=== PATIENT | female | born 1985 | race Caucasian/White ===

== ENCOUNTER 2016-10-11 21:09 | Emergency (ER) | payer OTHER ==
[~2016-10-11] VITALS: Ht 172.7 cm; Wt 139.3 kg
[2016-10-11 21:13] VITALS: TEMP 36.8; Ht 172.7 cm; Wt 139.3 kg
[2016-10-11] MEDS ORDERED: PRLSR20 PO (21:49)
[2016-10-11] MEDS ORDERED: DIPH1TAB87 PO (21:49)
[2016-10-11] MEDS ORDERED: HYDR-389 PO (21:49)
[2016-10-11] MEDS ORDERED: ATEN-173 PO (21:49)
[2016-10-11] MEDS ORDERED: GLC/500 PO (21:49)
--- NOTE | 2016-10-11 22:28 | EMERGENCY ROOM VISIT NOTE ---
History Report prepared by Viki: Katerine Hernandez Under the Supervision of: Dr. Darion Jacobo M.D. First contact with patient: 22:00 Chief Complaint: CONSTIPATION Stated Complaint: CONSTIPATION, NAUSEA Nursing Triage Summary: patient states she has not had a BM for one week along with intermittent nausea. patient states she went to [facility] last week for evaluation and had blood work and CT scan and was told everything looked okay. patient states she is able to tolerate food and fluids but is still not having BM's and feels bloated. History of Present Illness The patient is a 31 year old female who presents to the Emergency Room with complaints of persistent constipation that started 1 week ago. The patient states that she has been taking MiraLAX 4 times a day at double the dose, but has not experienced any significant relief. She states that she is able to have small bowel movements. She states that she also tried using Dulcolax. The patient is also experiencing abdominal bloating and abdominal pressure. She states that she does not have an urge to have a bowel movement. The patient denies any urinary symptoms or abnormal vaginal discharge. She adds that she was seen at the [facility] 5 days ago for persistent vomiting. They diagnosed her with a viral illness, but they also did an abdominal CT scan to rule out pancreatitis. The abdominal CT scan was unremarkable. She states that she does not have any nausea or vomiting currently. The patient is eating, but she states that her appetite is decreasing. She denies any chance of . The patient states that she had a cholecystectomy in 2012, but otherwise denies any previous abdominal surgeries. Source of History: patient Onset: 1 week ago Position: abdomen Quality: other (constipation) Timing: other (persistent) Modifying Factors (Relieving): other (none) Associated Symptoms: + abdominal pain (pressure), No urinary symptoms Note: abdominal bloating, no abnormal vaginal discharge Review of Systems See HPI for pertinent positives & negatives. A total of 10 systems reviewed and were otherwise negative. Past Medical & Surgical Surgical Problems: (1) History of cholecystectomy Family History No pertinent family history Social History Smoking Status: Former Smoker Housing Status: lives with family Current/Historical Medications Scheduled Atenolol (Tenormin), 10 MG PO HS Hydroxyzine Hcl (Atarax), 10 MG PO HS Metformin Hcl (Glucophage), 500 MG PO HS Sennosides-Docusate Sodium (Senokot S), 2 TAB PO BID Scheduled PRN Diphenhydramine Hcl (Benadryl Allergy), 50 MG PO HS PRN for Sleep Omeprazole (Prilosec), 20 MG PO DAILY PRN for Indigestion Allergies Coded Allergies: Cephalosporins (Verified Allergy, Unknown, HIVES, 10/11/16) Clindamycin (Verified Allergy, Unknown, HIVES, 10/11/16) Levofloxacin (Verified Allergy, Unknown, RASH, 10/11/16) Penicillins (Verified Allergy, Unknown, RASH, 10/11/16) Physical Exam Vital Signs Date Time Temp Pulse Resp B/P Pulse Ox O2 Delivery O2 Flow Rate FiO2 10/11/16 23:19 88 20 158/94 97 Room Air 10/11/16 21:13 36.8 84 18 158/115 99 Room Air Physical Exam GENERAL: Patient is in no acute distress. HEENT: No acute trauma, normocephalic atraumatic, mucous membranes moist, no nasal congestion, no scleral icterus. NECK: No stridor, no adenopathy, no meningismus, trachea is midline. LUNGS: Clear to auscultation bilaterally, no wheeze, no rhonchi, breath sounds equal. HEART: Without murmurs gallops or rubs, regular rate and rhythm. ABDOMEN: Soft, nontender, bowel sounds positive, no hernias, no peritonitis. EXTREMITIES: No cyanosis or edema, full range of motion of all the joints without pain or difficulty, no signs for acute trauma. NEUROLOGIC: Oriented x 3, no acute motor or sensory deficits, no focal weakness. SKIN: No rash, no jaundice, no diaphoresis. Medical Decision & Procedures ER Provider Diagnostic Interpretation: X-ray results as stated below per interpretation by me and the radiologist: KUB FINDINGS: The bowel gas pattern is unremarkable. There are no dilated loops of small bowel to suggest an obstruction. No renal calculi. No ureteral calculi. No pneumoperitoneum or pneumatosis. Small amount of stool within the colon. Cholecystectomy. IMPRESSION: Small amount of stool within the colon. No evidence for bowel obstruction. Electronically signed by: Remington Chopra M.D. 10/11/2016 10:47 PM Dictated Date/Time: 10/11/2016 10:45 PM Medications Administered Medications (Trade) Dose Ordered Sig/Nathan Route Start Time Stop Time Status Last Admin Dose Admin Senna/Docusate Sodium (Senokot S Tab) 2 tab NOW ONCE PO 10/11/16 23:30 10/11/16 23:31 10/11/16 23:20 2 TAB ED Course 2203: The patient was evaluated in room C8. A complete history and physical exam was performed. 2311: Reevaluated the patient. Discussed results and discharge instructions: she verbalized understanding and agreement. The patient is ready for discharge. 2330: Ordered Senna/Docusate Sodium 2 tab PO Medical Decision Differential diagnoses considered include viral illness, dehydration, electrolyte imbalance, UTI, anemia, appendicitis, diverticulitis, constipation. The patient presents with some bloating and some diffuse abdominal cramping. She has not had a bowel movement in about a week. She did have a viral illness with vomiting just prior to the difficulty moving her bowels. She has had a workup at a surrounding hospital with no concerning findings. The patient is using Miralax. She does not have the urge to have a bowel movement but feels that she needs to or should because it has been so long since her last BM. KUB demonstrates a mild amount of stool, there was air in the colon, no evidence for bowel obstruction, there was no evidence for significant constipation. On exam, the patient was not febrile or toxic. There was no peritonitis. The patient likely has an ileus. She was reassured that she was not overly constipated. I'm going to add Senokot to help stimulate the bowels, she'll continue the Miralax. Hydration was encouraged. If worsening she can return. Motrin/Tylenol was advised for pain. The patient's blood pressure was mildly elevated, this likely was from the stress of this visit. Her pressure started to decrease during her ER stay. She can follow with her doctor for blood pressure monitoring. Impression Primary Impression: Bloating Scribe Attestation The scribe's documentation has been prepared under my direction and personally reviewed by me in its entirety. I confirm that the note above accurately reflects all work, treatment, procedures, and medical decision making performed by me. Departure Information Dispostion Home / Self-Care Prescriptions Sennosides-Docusate Sodium (SENOKOT S) 1 Tab Tab 2 TAB PO BID, #60 TAB Prov: Darion Jacobo M.D. 10/11/16 Referrals No Doctor, Assigned (PCP) Forms HOME CARE DOCUMENTATION FORM, IMPORTANT VISIT INFORMATION Patient Instructions My [facility] Additional Instructions continue miralax daily add Senokot S 2 tab 2x per day motrin/tylenol for pain return if worsening rest, fluids are important
--- NOTE | 2016-10-11 22:48 | DIAGNOSTIC IMAGING REPORT ---
KUB HISTORY: Nausea. poss constipation COMPARISON: None. FINDINGS: The bowel gas pattern is unremarkable. There are no dilated loops of small bowel to suggest an obstruction. No renal calculi. No ureteral calculi. No pneumoperitoneum or pneumatosis. Small amount of stool within the colon. Cholecystectomy. IMPRESSION: Small amount of stool within the colon. No evidence for bowel obstruction. Electronically signed by: Remington Chopra M.D. 10/11/2016 10:47 PM Dictated Date/Time: 10/11/2016 10:45 PM
[2016-10-11] MEDS ORDERED: SENN-65 PO (23:19)
[2016-10-11 23:28] VITALS: BP 158/94; PULSE 88; O2SAT 97
[2016-10-11] MEDS ORDERED: DOCUSATE SODIUM/SENNA 50/8.6MG TAB PO ONE (23:30)
== END 2016-10-11 23:29 | disposition home or self-care (01) ==
LOC: C.EDB 21:12 → C.EDC 23:29
DX: R14.0 Abdominal distension (gaseous) (principal); Z87.891 Personal history of nicotine dependence; Z90.49 Acquired absence of other specified parts of digestive tract

== ENCOUNTER 2021-03-30 17:17 | Observation (INO) ==
[2021-03-30 18:42] LABS: Basophils # (auto) 0.03 K/uL (0-0.2); Basophils % (auto) 0.2 %; Eosinophils # (auto) 0.16 K/uL (0-0.5); Eosinophils % (auto) 1.1 %; Hematocrit (blood only) 37.3 % (37-47); Hemoglobin 11.9 g/dL (12.0-16.0); Immature Granulocytes # (auto) 0.05 K/uL (0.00-0.02); Immature Granulocytes % (auto) 0.4 %; Lymphocytes # (auto) 4.26 K/uL (1.2-3.4); Lymphocytes % (auto) 29.8 %; Mean Corpuscular Hemoglobin 24.5 pg (25-34); Mean Corpuscular Hgb Conc 31.9 g/dL (32-36); Mean Corpuscular Volume 76.9 fL (80-100); Mean Platelet Volume 9.1 fL (7.4-10.4); Monocytes % (auto) 5.6 %; Neutrophils # (auto) 8.98 K/uL (1.4-6.5); Neutrophils % (auto) 62.9 %; Platelet Count 507 K/uL (130-400); RDW Coefficient of Variation 17.2 % (11.5-14.5); RDW Standard Deviation 48.4 fL (36.4-46.3); Red Blood Count 4.85 M/uL (4.2-5.4); White Blood Count 14.28 K/uL (4.8-10.8)
[2021-03-30 18:46] LABS: Appearance Urine Clear (Clear); Bacteria Urine Automated Negative (Negative); Bilirubin Urine Negative (Negative); Blood Urine 2+ (Negative); Cast Urine Automated 0 /lpf (0-5); Color Urine Yellow; Epithelial Cell Urine Auto 0-5 /lpf (0-5); Glucose Urine UA Negative (Negative); Ketones Urine Negative (Negative); Leukocyte Esterase Urine Trace (Negative); Nitrite Urine Negative (Negative); Protein Urine Negative (Negative); Urobilinogen Urine Negative (Negative); pH Urine 6.5 (4.5-7.5)
[2021-03-30 18:58] LABS: Pregnancy Test, Serum Negative (Negative)
[2021-03-30 19:00] LABS: Albumin Level 3.8 gm/dl (3.4-5.0); BUN Creatinine Ratio 14.7 (10-20); Calcium 9.5 mg/dl (8.5-10.1); Creatinine Clr Calc Pharmacy 190.9 ml/min; Est GFR (African American) 134.3 ml/min; Est GFR (Non-African American) 115.8 ml/min; Potassium 3.5 mmol/L (3.5-5.1)
[2021-03-30 19:02] LABS: Albumin Globulin Ratio 0.8 (0.9-2); Bilirubin,Total 0.5 mg/dl (0.2-1); Globulin 4.7 gm/dl (2.5-4.0); Total Protein 8.5 gm/dl (6.4-8.2)
[2021-03-30] MEDS ORDERED: SODIUM CHLORIDE 0.9% 1000ML 1,000 ML IV ONE (19:49)
[2021-03-30] MEDS ORDERED: HYDROmorphone INJ 0.5 MG/0.5 ML SYR IV STA ×2 (19:49→22:19)
[2021-03-30] MEDS ORDERED: ONDANSETRON INJ 2 MG/ML 2 ML VIAL IV STA (19:50)
--- NOTE | 2021-03-30 19:52 | Emergency Department Note ---
Impression & Plan Appendicitis, Abdominal pain ED Provider Note NAME: TIFFANY ALLEN AGE: 36 SEX: F : 1985 ARRIVES VIA: Walk-In INFORMANT: Patient ED PROVIDER(S): Yusuf Christianson DO CHIEF COMPLAINT: abdominal pain HPI: Patient is a 36-year-old female who presents the ER for diffuse lower abdominal pain associated with nausea. She notes that this started past 24 hours. She has been having loose bowel movements for the past week with her menstrual period which started about a week ago. She has been very irregular for the past several months. After she urinates she feels like she has to urinate again and she has burning. She admits to urgency. She has pain with having bowel movements and they are very hard and very small. She is only getting small amount of time. She feels like she still has to go. She is sexually active with her . She denies any other vaginal discharge. She does admit to some bruising on the abdomen. Pain is an 8 out of 10 and constant in her lower abdomen. ROS: See above HPI for pertinent positives & negatives. A total of 10 systems reviewed and were otherwise negative. PAST MEDICAL HISTORY:See Below PAST SURGICAL HISTORY:See Below FAMILY HISTORY:See Below SOCIAL HISTORY:See Below HOME MEDICATIONS:See Below ALLERGIES:See Below VITALS:See Below PHYSICAL EXAMINATION: GENERAL: Sitting up in bed, alert, obese, mild distress EYE EXAM: normal conjunctiva. PERRL and EOM's grossly intact. OROPHARYNX: no exudate, no erythema, lips, buccal mucosa, and tongue normal and mucous membranes are moist NECK: supple, no nuchal rigidity, no adenopathy, non-tender LUNGS: Clear to auscultation. Normal chest wall mechanics HEART: no murmurs, S1 normal and S2 normal ABDOMEN: abdomen soft, tenderness in lower abdomen, normo-active bowel sounds, no masses, no rebound or guarding. BACK: Back is symmetrical on inspection and there is no deformity, no midline tenderness, no CVA tenderness. UPPER EXTREMITIES: upper extremities are grossly normal. LOWER EXTREMITIES: No pitting edema. NEURO EXAM: Normal sensorium, cranial nerves II-XII grossly intact, normal speech, no gross weakness of arms, no gross weakness of legs. MEDICAL DECISION MAKING: Patient is a 36-year-old female who presents to the ER for abdominal pain. She is referred in. IV was established blood work was obtained. Labs show mild leukocytosis of 14,000. No significant anemia. BMP with LFTs bilirubin and lipase is unremarkable. hCG was negative. UA was clean. Covid was negative. CT shows distended appendix with stranding. Case was discussed with general surgery and patient was seen evaluated by Luis Pillai. He recommended Cipro and Flagyl and they will admit for OR in the morning. Triage Nursing notes reviewed. Limited review of prior medical records performed Vital Signs: reviewed and remarkable for HTN Differential diagnosis: Differential diagnoses includes but is not limited to gastritis, peptic ulcer disease, GERD, gallbladder disease, pancreatitis, small bowel obstruction, acute coronary syndrome, pericarditis, ischemic bowel, irritable bowel disease, irritable bowel syndrome, appendicitis, diverticulitis, malignancy, hernia, urinary tract infection, torsion, /ectopic (if female), perforation, trauma, infectious. ER treatment provided: See below Diagnostics interpreted by me: ECG: none Cardiac Monitoring: An order was placed for continuous cardiac monitoring. The monitor shows a rate of 72 with sinus rhythm. Laboratory studies: As stated above and show below. 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 > extensive workup including serum tryptase with no definitive etiology, 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 > prednisone PRN Migraine Morbid obesity No pertinent past medical history Polycystic ovarian syndrome on Metformin Post traumatic stress disorder Scoliosis mild Surgical History History of biopsy Uterine History of cholecystectomy History of cholecystectomy History of colonoscopy History of esophagogastroduodenoscopy (EGD) Hooper teeth removed Family History Other Family history non-contributory No family history of adverse response to anesthesia Social History Smoking Status: Former smoker Tobacco Type: Cigarettes Second Hand Exposure: Yes; Hx Alcohol Use: Yes Preferred Language: Pashto Thermal Spr[employer] Operator Required: No Beliefs That Will Affect Care: None Current Living Situation: Family Feels Safe at Home: Yes Assistive Devices: Contacts Allergies Allergies Allergy/AdvReac Type Severity Reaction Status Date / Time morphine Allergy Intermediate Difficulty Verified 03/30/21 20:26 Breathing Cephalosporins Allergy Mild Hives Verified 03/30/21 20:26 clindamycin Allergy Mild Hives Verified 03/30/21 20:26 levofloxacin Allergy Mild Rash Verified 03/30/21 20:26 Penicillins Allergy Mild Rash Verified 03/30/21 20:26 Home Meds Home Medications Medication Instructions Recorded Confirmed metformin 500 mg tablet 500 mg PO BID 10/22/18 03/30/21 albuterol sulfate 90 mcg/actuation 2 puff INHALATION Q6H PRN 07/24/20 03/30/21 aerosol inhaler (Ventolin HFA) diphenhydramine HCl 25 mg tablet 25 mg PO Q6H PRN 07/24/20 03/30/21 (Benadryl Allergy) epinephrine 0.3 mg/0.3 mL 0.3 mg IM Q4H PRN 07/24/20 03/30/21 injection, auto-injector hydroxyzine HCl 25 mg tablet 25 mg PO DAILY PRN 07/24/20 03/30/21 sertraline 50 mg tablet (Zoloft) 50 mg PO QAM 07/24/20 03/30/21 prednisone 10 mg tablet 20 mg PO DAILY PRN 08/10/20 03/30/21 cetirizine 10 mg tablet 10 mg PO DAILY 03/30/21 03/30/21 Previous Rx's Medication Instructions Recorded ondansetron 4 mg disintegrating 4 mg PO Q6H PRN #12 tab 05/21/20 tablet Results & Data (ED) Vital Signs Vital Signs - 24 hr 03/30/21 18:29 03/30/21 20:00 03/30/21 22:00 Temperature 36.9 C Temperature Source Oral Pulse Rate 81 Pulse Rate [Apical] 87 80 Pulse Rhythm [Apical] Regular Pulse Strength [Apical] Normal Respiratory Rate 18 18 18 Respiratory Effort / Characteristics Non-Labored Respiratory Depth Normal Respiratory Pattern Regular Blood Pressure 203/121 H Blood Pressure [Left Arm] 185/92 H 157/90 H Blood Pressure Mean 148 Blood Pressure Mean [Left Arm] 123 112 Blood Pressure Position [Left Arm] Sitting Pulse Oximetry 100 100 99 Oxygen Delivery Method Room Air Room Air Room Air Sepsis Recent Fever Within 48 Hours No Sepsis New/Unexplained Change in Mental Status No Sepsis Action Taken by Nursing No Action Required Laboratory Data Result diagrams: 03/30/21 18:34 03/30/21 18:34 Lab Results 03/30/21 03/30/21 03/30/21 Range/Units 18:34 18:34 18:34 WBC 14.28 H (4.8-10.8) K/uL RBC 4.85 (4.2-5.4) M/uL Hgb 11.9 L (12.0-16.0) g/dL Hct 37.3 (37-47) % MCV 76.9 L (80-100) fL MCH 24.5 L (25-34) pg MCHC 31.9 L (32-36) g/dL RDW Std Deviation 48.4 H (36.4-46.3) fL RDW Coeff of Rian 17.2 H (11.5-14.5) % Plt Count 507 H (130-400) K/uL MPV 9.1 (7.4-10.4) fL Immature Gran % (Auto) 0.4 % Neut % (Auto) 62.9 % Lymph % (Auto) 29.8 % [place] % (Auto) 5.6 % Eos % (Auto) 1.1 % Baso % (Auto) 0.2 % Neut # (Auto) 8.98 H (1.4-6.5) K/uL Lymph # (Auto) 4.26 H (1.2-3.4) K/uL [place] # (Auto) 0.80 H (0.11-0.59) K/uL Eos # (Auto) 0.16 (0-0.5) K/uL Baso # (Auto) 0.03 (0-0.2) K/uL Immature Gran # (Auto) 0.05 H (0.00-0.02) K/uL Sodium 137 (136-145) mmol/L Potassium 3.5 (3.5-5.1) mmol/L Chloride 107 (98-107) mmol/L Carbon Dioxide 24 (21-32) mmol/L Anion Gap 6.0 (3-11) BUN 10 (7-18) mg/dl Creatinine 0.65 (0.6-1.2) mg/dl Est Cr Clr Drug Dosing 190.9 ml/min Est GFR ( Amer) 134.3 ml/min Est GFR (Non-Af Amer) 115.8 ml/min BUN/Creatinine Ratio 14.7 (10-20) Glucose 83 (70-99) mg/dl Calcium 9.5 (8.5-10.1) mg/dl Total Bilirubin 0.5 (0.2-1) mg/dl AST 14 L (15-37) U/L ALT 31 (12-78) U/L Alkaline Phosphatase 66 (45-117) U/L Total Protein 8.5 H (6.4-8.2) gm/dl Albumin 3.8 (3.4-5.0) gm/dl Globulin 4.7 H (2.5-4.0) gm/dl Albumin/Globulin Ratio 0.8 L (0.9-2) Lipase 127 (73-393) U/L HCG, Qual Negative (Negative) Urine Color Urine Appearance (Clear) Urine pH (4.5-7.5) Ur Specific [place] (1.000-1.030) Urine Protein (Negative) Urine Glucose (UA) (Negative) Urine Ketones (Negative) Urine Blood (Negative) Urine Nitrite (Negative) Urine Bilirubin (Negative) Urine Urobilinogen (Negative) Ur Leukocyte Esterase (Negative) Urine WBC (Auto) (0-5) /hpf Urine RBC (Auto) (0-4) /hpf U Hyaline Cast (Auto) (0-5) /lpf U Epithel Cells (Auto) (0-5) /lpf Urine Bacteria (Auto) (Negative) COVID-19 Eval Order SARS-CoV-2 (PCR) (Negative) 03/30/21 03/30/21 03/30/21 Range/Units 18:34 22:47 22:47 WBC (4.8-10.8) K/uL RBC (4.2-5.4) M/uL Hgb (12.0-16.0) g/dL Hct (37-47) % MCV (80-100) fL MCH (25-34) pg MCHC (32-36) g/dL RDW Std Deviation (36.4-46.3) fL RDW Coeff of Rian (11.5-14.5) % Plt Count (130-400) K/uL MPV (7.4-10.4) fL Immature Gran % (Auto) % Neut % (Auto) % Lymph % (Auto) % [place] % (Auto) % Eos % (Auto) % Baso % (Auto) % Neut # (Auto) (1.4-6.5) K/uL Lymph # (Auto) (1.2-3.4) K/uL [place] # (Auto) (0.11-0.59) K/uL Eos # (Auto) (0-0.5) K/uL Baso # (Auto) (0-0.2) K/uL Immature Gran # (Auto) (0.00-0.02) K/uL Sodium (136-145) mmol/L Potassium (3.5-5.1) mmol/L Chloride (98-107) mmol/L Carbon Dioxide (21-32) mmol/L Anion Gap (3-11) BUN (7-18) mg/dl Creatinine (0.6-1.2) mg/dl Est Cr Clr Drug Dosing ml/min Est GFR ( Amer) ml/min Est GFR (Non-Af Amer) ml/min BUN/Creatinine Ratio (10-20) Glucose (70-99) mg/dl Calcium (8.5-10.1) mg/dl Total Bilirubin (0.2-1) mg/dl AST (15-37) U/L ALT (12-78) U/L Alkaline Phosphatase (45-117) U/L Total Protein (6.4-8.2) gm/dl Albumin (3.4-5.0) gm/dl Globulin (2.5-4.0) gm/dl Albumin/Globulin Ratio (0.9-2) Lipase (73-393) U/L HCG, Qual (Negative) Urine Color Yellow Urine Appearance Clear (Clear) Urine pH 6.5 (4.5-7.5) Ur Specific [place] 1.010 (1.000-1.030) Urine Protein Negative (Negative) Urine Glucose (UA) Negative (Negative) Urine Ketones Negative (Negative) Urine Blood 2+ H (Negative) Urine Nitrite Negative (Negative) Urine Bilirubin Negative (Negative) Urine Urobilinogen Negative (Negative) Ur Leukocyte Esterase Trace H (Negative) Urine WBC (Auto) 1-5 (0-5) /hpf Urine RBC (Auto) 10-30 H (0-4) /hpf U Hyaline Cast (Auto) 0 (0-5) /lpf U Epithel Cells (Auto) 0-5 (0-5) /lpf Urine Bacteria (Auto) Negative (Negative) COVID-19 Eval Order Covid19 at [facility] SARS-CoV-2 (PCR) NEGATIVE (Negative) Administered Medications Discontinued Medications Hydromorphone HCl (Hydromorphone Inj 0.5 Mg/0.5 Ml Syr) 0.5 mg IV NOW STA Stop: 03/30/21 19:50 Last Admin: 03/30/21 19:57 Dose: 0.5 mg Documented by: [id number] Hydromorphone HCl (Hydromorphone Inj 0.5 Mg/0.5 Ml Syr) 0.5 mg IV NOW STA Stop: 03/30/21 22:20 Last Admin: 03/30/21 22:43 Dose: Not Given Documented by: [id number] Hydromorphone HCl (Hydromorphone Inj 1 Mg/Ml Syringe) 1 mg IV NOW STA Stop: 03/30/21 22:25 Last Admin: 03/30/21 22:34 Dose: 1 mg Documented by: [id number] Sodium Chloride (Nss 1000ml) 1,000 mls @ 999 mls/hr IV .Q1H1M ONE Stop: 03/30/21 20:49 Last Infusion: 03/30/21 21:09 Dose: 0 mls/hr Documented by: [id number] Admin: 03/30/21 19:57 Dose: 999 mls/hr Documented by: [id number] Ciprofloxacin (Cipro / D5w) 400 mg in 200 mls @ 100 mls/hr IV NOW STA; Protocol Stop: 03/31/21 00:45 Last Admin: 03/31/21 00:27 Dose: 100 mls/hr Documented by: [id number] Metronidazole (Flagyl) 500 mg in 100 mls @ 100 mls/hr IV NOW STA Stop: 03/30/21 23:45 Last Infusion: 10/17/21 00:33 Dose: 0 mls/hr Documented by: [id number] Admin: 03/30/21 23:21 Dose: 100 mls/hr Documented by: [id number] Ioversol (Optiray 320 125ml) 120 ml IV ONCE ONE Stop: 03/30/21 21:03 Last Admin: 03/30/21 21:03 Dose: 120 ml Documented by: [id number] Ondansetron HCl (Ondansetron Inj 2 Mg/Ml 2 Ml Vial) 4 mg IV NOW STA Stop: 03/30/21 19:51 Last Admin: 03/30/21 19:57 Dose: 4 mg Documented by: [id number] Discharge Plan Visit Data Chief Complaint: Abdominal Pain Stated Complaint: ABD PAIN,DIZZY,HEAVY BLEEDING ED Provider: Yusuf Christianson Discharge Problem: Appendicitis, Abdominal pain Patient Disposition: Admitted As Inpatient Discharge Instructions Interventions: ED Discharge Assessment Last Done: 03/31/21 00:24 ED AMA/LWBS Discharge Assessment Last Done: 03/30/21 17:53 Discharge Problem: Appendicitis Qualifiers: Appendicitis type: acute appendicitis Acute appendicitis type: with localized peritonitis Appendicitis gangrene presence: unspecified whether gangrene present Appendicitis perforation presence: unspecified whether perforation present Appendicitis abscess presence: unspecified whether abscess present Qualified Code(s): K35.30 - Acute appendicitis with localized peritonitis, without perforation or gangrene Abdominal pain Qualifiers: Abdominal location: unspecified location Qualified Code(s): R10.9 - Unspecified abdominal pain
[2021-03-30] MEDS ORDERED: OPTIRAY 320 125ml IV ONE (21:02)
[2021-03-30] MEDS ORDERED: HYDROmorphone INJ 1 MG/ML SYRINGE IV STA (22:24)
[2021-03-30] MEDS ORDERED: metroNIDAZOLE 500 MG/100 ML BAG IV STA (22:46)
[2021-03-30] MEDS ORDERED: CIPROFLOXACIN / D5W 400 MG/200 ML BAG IV STA (22:46)
--- NOTE | 2021-03-30 22:50 | History & Physical Report ---
Date of Service March 30, 2021 Assessment & Plan (1) Acute appendicitis: Plan: Due to the patient's labs, imaging, and clinical presentation she will be placed in the hospital under observation proceeding as follows: Analgesics will be provided. We will utilize Dilaudid as she has an allergy to morphine and has thus far tolerated Dilaudid Provide antiemetics Implement n.p.o. status Provide IV fluid for hydration We will administer antibiotics. Patient has numerous antibiotic allergies including cephalosporins and clindamycin both of which cause hives. She is also allergic to penicillin and Levaquin both of which cause rash. I discussed this with the patient and she specifically notes that she has taken ciprofloxacin in the past and has tolerated this medication without any adverse effects. To the best of her knowledge she has never taken metronidazole. She has tolerated Cipro in the past and metronidazole is not in the same class of any of the other medications she is allergic to we will utilize these 2 medications. A Covid test has been ordered and is pending. We will follow for results of this We will plan on performing an appendectomy tomorrow morning. I discussed this with the patient and noted that we typically perform this procedure in a laparoscopic fashion but there is a chance conversion to open procedure may be required. I discussed the risks, benefits, and alternatives with the patient. I have also discussed the expected postoperative course and she wishes to proceed. We will use SCDs for DVT prevention no chemical means due to planned surgery. Additional recommendations will be forthcoming based on operative findings as well as her postoperative course and clinical course as it unfolds History of Present Illness Chief Complaint: Abdominal pain Primary Care Provider: Keo Quintero MD This is a 36-year-old female who presented to [facility] emergency department secondary to abdominal pain that began earlier today. She said that the pain was located inferior to her umbilicus and just above her pubic bone. Since the pain began it has now shifted mostly to the right lower quadrant over McBurney's point. She denies any radiation of the pain. She has had nausea but no vomiting. She notes that the pain is somewhat alleviated with medicines that were administered in the emergency department. She does note that the pain is worse with certain movements. She has not had any fevers but has had chills. She notes she has had prior abdominal surgery as she has had a laparoscopic cholecystectomy several years ago. In the emergency department patient had labs and imaging which I independently reviewed. CT scan of the abdomen pelvis showed the patient had a appendix measuring approximately 8 mm in diameter with adjacent stranding concerning for acute appendicitis. Labs include a CBC her white blood cell count was 14.2. He r hemoglobin was noted to be 11.9 but the hematocrit was within the normal range. Platelet count was elevated at 507,000. Chemistry profile showed sodium, potassium, BUN, and creatinine were all within normal range. There is no significant elevation of LFTs or lipase. A test was performed and was noted to be negative. Urinalysis was not indicative of infection. A Covid test has been ordered and is pending. It is noted in the patient's medical history that she has a history of being positive for COVID-19. I did question her about this and she notes in May 2020 she underwent Covid testing. She had one test that was negative and one test that was positive. At the present time she does not have any symptoms of cough or shortness of breath. She has not lost her sense of taste or smell. At the time of my interview the patient was resting in bed. She did have some right lower quadrant discomfort but pain medicine was alleviating some of this and she was in no distress. Allergies Allergy/AdvReac Type Severity Reaction Status Date / Time morphine Allergy Intermediate Difficulty Verified 03/30/21 20:26 Breathing Cephalosporins Allergy Mild Hives Verified 03/30/21 20:26 clindamycin Allergy Mild Hives Verified 03/30/21 20:26 levofloxacin Allergy Mild Rash Verified 03/30/21 20:26 Penicillins Allergy Mild Rash Verified 03/30/21 20:26 Home Medications Medication Instructions Recorded Confirmed Type metformin 500 mg tablet 500 mg PO BID 10/22/18 03/30/21 History ondansetron 4 mg disintegrating 4 mg PO Q6H PRN #12 tab 05/21/20 03/30/21 Rx tablet albuterol sulfate 90 mcg/actuation 2 puff INHALATION Q6H PRN 07/24/20 03/30/21 History aerosol inhaler (Ventolin HFA) diphenhydramine HCl 25 mg tablet 25 mg PO Q6H PRN 07/24/20 03/30/21 History (Benadryl Allergy) epinephrine 0.3 mg/0.3 mL 0.3 mg IM Q4H PRN 07/24/20 03/30/21 History injection, auto-injector hydroxyzine HCl 25 mg tablet 25 mg PO DAILY PRN 07/24/20 03/30/21 History sertraline 50 mg tablet (Zoloft) 50 mg PO QAM 07/24/20 03/30/21 History prednisone 10 mg tablet 20 mg PO DAILY PRN 08/10/20 03/30/21 History cetirizine 10 mg tablet 10 mg PO DAILY 03/30/21 03/30/21 History Past Med/Surg History Medical History Anemia no hx of blood transfusion Anxiety and depression Chronic bronchitis inhaler PRN COVID-19 virus detected COVID positive 06/06/20 ([employer]/[facility] [place]) (symptoms at time of sinus pressure > since resolved) GERD (gastroesophageal reflux disease) controlled Hx of migraines Hypertension Hypertension 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 > extensive workup including serum tryptase with no definitive etiology, 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 > prednisone PRN Migraine Morbid obesity No pertinent past medical history Polycystic ovarian syndrome on Metformin Post traumatic stress disorder Scoliosis mild Surgical History History of biopsy Uterine History of cholecystectomy History of cholecystectomy History of colonoscopy History of esophagogastroduodenoscopy (EGD) [place] teeth removed Family History Other Family history non-contributory No family history of adverse response to anesthesia Social History Smoking Status: Former smoker Tobacco Type: Cigarettes Second Hand Exposure: Yes; Hx Alcohol Use: Yes Preferred Language: Georgian Proced Tech Required: No Beliefs That Will Affect Care: None Current Living Situation: Family Feels Safe at Home: Yes Assistive Devices: Contacts Review of Systems Constitutional: + chills; no fever Eyes: no diplopia Ear, Nose, Mouth, Throat: no ear pain and no sore throat Respiratory: no cough and no dyspnea Cardiovascular: no chest pain Gastrointestinal: + abdominal pain and + nausea; no vomiting Genitourinary: + dysuria (Noted at the end of urination) Musculoskeletal: no back pain Integumentary: no rash Neurologic: no localized weakness Physical Exam Constitutional: well developed, well nourished and + obese; no acute distress Eyes: no conjunctival abnormality ENMT: Ears: no hearing impairment Mouth: no oropharynx abnormality Neck: trachea midline Respiratory: normal respiratory effort, lungs clear to auscultation Cardiovascular: Rate/Rhythm: regular rate and regular rhythm Gastrointestinal (Abdomen): Abdomen is rotund. Bowel sounds are present. There is pain with palpation to a slight degree in the suprapubic region of her abdomen but pain is much more pronounced with palpation in the right lower quadrant over McBurney's point. Musculoskeletal: No calf tenderness Skin: no rashes Neurologic: moves all extremities Psychiatric: A+Ox3, euthymic affect Results & Data Results & Data ([facility]) Vital Signs (Past 12 Hours) Vital Signs Temp Pulse Pulse Resp BP BP Pulse Ox 03/30/21 22:00 80 18 157/90 H 99 03/30/21 20:00 87 18 185/92 H 100 03/30/21 18:29 36.9 C 81 18 203/121 H 100 Supervising Physician Co-Signing Physician Notes Patient discussed with Luis Graff, labs and imaging reviewed, agree with above. 36 y/o female with abdominal pain that migrated to RLQ. afvss, ttp RLQ, wbc 14, ct with dilated appendix with distal fat stranding c/w appendicitis. Plan for laparoscopic appendectomy in AM. PG Care Time/CCT Total # of Minutes Spent Total Time Spent with Patient: Total time spent is greater than 50% in coordination of care (as documented) at patient's floor/unit and/or counseling patient: Coding Level of Care Code INT OBSERVATION CARE 70M LVL 3 Diagnoses Acute appendicitis K35.80
[2021-03-31] MEDS ORDERED: ALBUTEROL HFA 8 GM INHALER INH PRN (01:02)
[2021-03-31] MEDS ORDERED: predniSONE 20 MG TAB PO PRN (01:02)
[2021-03-31] MEDS ORDERED: HYDROmorphone INJ 0.5 MG/0.5 ML SYR IV PRN (01:02)
[2021-03-31] MEDS ORDERED: ACETAMINOPHEN 1,000 MG/100 ML VIAL IV PRN (01:02)
[2021-03-31] MEDS ORDERED: hydrOXYzine HCl 25 MG TAB PO PRN (01:02)
[2021-03-31] MEDS ORDERED: ONDANSETRON INJ 2 MG/ML 2 ML VIAL IV PRN ×2 (01:02→07:54)
[2021-03-31] MEDS ORDERED: ONDANSETRON 4 MG OD TAB PO PRN (01:37)
[2021-03-31] MEDS ORDERED: diphenhydrAMINE Capsule 25 MG CAP PO PRN (01:37)
[2021-03-31] MEDS ORDERED: EPINEPHrine INJ 1 MG/ML AMP IM PRN (01:39)
[2021-03-31] MEDS: LACTATED RINGER'S 1,000 ML IV SCH ×2 (02:30→16:07)
--- NOTE | 2021-03-31 06:10 | Surgery Progress Note ---
Date of Service March 31, 2021 Assessment & Plan (1) Appendicitis: Plan: Plan is for laparoscopic, possible open appendectomy this morning Continue analgesics Continue antiemetics Continue antibiotics in the form of Cipro and Flagyl (patient has numerous medication allergies and has thus far tolerated these 2 antibiotics without issues) Continue IV fluids for hydration Continue n.p.o. status Covid test has been ordered and is noted to be negative Additional recommendations be forthcoming based on operative findings and her postoperative course as she recovers SCDs to be utilized for DVT prevention, no chemical means due to planned surgery Admission and Anticipated Discharge Date Admission Date: March 30, 2021 Supervising Physician Co-Signing Physician Notes Patient seen and examined, labs and imaging reviewed, agree with above. 36-year-old female presented overnight with right lower quadrant pain, CT suggestive of acute appendicitis. On exam afebrile with stable vitals, tender palpation in right lower quadrant and McBurney's point. CT personally reviewed and interpreted and agree with the assessment of early appendicitis. Plan for laparoscopic appendectomy The risk the procedure were discussed to include but not limited to bleeding, infection, normal appendix, damage surrounding structures, need for future more extensive surgery, conversion open, and the risk of anesthesia Potential discharge this afternoon Subjective Patient is resting comfortably in bed. She denies any fever, shakes, chills. She denies any nausea or vomiting. She notes her right lower quadrant pain has improved somewhat since her antibiotics have started. Physical Exam Gastrointestinal (Abdomen): Abdomen is soft, and nondistended. Patient continues to have pain in the right lower quadrant with palpation. Results & Data ([facility]) Vital Signs (Past 12 Hours) Vital Signs Temp Pulse Pulse Pulse Resp BP BP 03/31/21 01:47 36.8 C 77 22 154/93 H 03/31/21 00:24 77 16 178/101 H 03/30/21 23:25 77 16 175/119 H 03/30/21 22:00 80 18 157/90 H 03/30/21 20:00 87 18 185/92 H 03/30/21 18:29 36.9 C 81 18 203/121 H Pulse Ox 03/31/21 01:47 95 03/31/21 00:24 99 03/30/21 23:25 99 03/30/21 22:00 99 03/30/21 20:00 100 03/30/21 18:29 100 PG Care Time/CCT Total # of Minutes Spent Total Time Spent with Patient: Total time spent is greater than 50% in coordination of care (as documented) at patient's floor/unit and/or counseling patient: Coding Level of Care Code None Diagnoses Appendicitis K35.30 Acute appendicitis type: with localized peritonitis Appendicitis abscess presence: unspecified whether abscess present Appendicitis gangrene presence: unspecified whether gangrene present Appendicitis perforation presence: unspecified whether perforation present Appendicitis type: acute appendicitis (1) Appendicitis Acute appendicitis type: with localized peritonitis Appendicitis abscess presence: unspecified whether abscess present Appendicitis gangrene presence: unspecified whether gangrene present Appendicitis perforation presence: unspecified whether perforation present Appendicitis type: acute appendicitis Qualified Code(s): K35.30 - Acute appendicitis with localized peritonitis, without perforation or gangrene
[2021-03-31] MEDS ORDERED: BUPIVACAINE 0.5 % 5 MG/1 ML MPF 30ML VIAL ONE (07:00)
[2021-03-31] MEDS ORDERED: ROCURONIUM BROMIDE 10 MG/ML 5 ML VIAL IV ONE (07:04)
[2021-03-31] MEDS ORDERED: LIDOCAINE 2% 2 ML VIAL/AMP(20MG/ML) INFIL ONE (07:04)
[2021-03-31] MEDS ORDERED: PROPOFOL IV EMULSION 10 MG/ML 20 ML VIAL IV ONE (07:04)
[2021-03-31] MEDS ORDERED: fentaNYL citrate 100 MCG/2 ML VIAL ONE (07:04)
[2021-03-31] MEDS ORDERED: MIDAZOLAM HCL 1 MG/ML 2ML VIAL ONE (07:04)
--- NOTE | 2021-03-31 07:26 | Anesthesiology Consultation ---
Date of Service March 31, 2021 Assessment & Plan (1) Encounter for pre-operative examination: Chart Review Chart Review: Acceptable Risk for Surgery and Patient NOT seen in Pre Admission Testing Consults Requested none History Surgery Operation Date: 03/31/21 07:30 Proposed Procedures p Laparoscopic Appendectomy - Brian Chance DO, FACS Height/Weight Height: 5 ft 8 in Weight: 151.5 kg Allergies Allergy/AdvReac Type Severity Reaction Status Date / Time morphine Allergy Intermediate Difficulty Verified 03/30/21 20:26 Breathing Cephalosporins Allergy Mild Hives Verified 03/30/21 20:26 clindamycin Allergy Mild Hives Verified 03/30/21 20:26 levofloxacin Allergy Mild Rash Verified 03/30/21 20:26 Penicillins Allergy Mild Rash Verified 03/30/21 20:26 Medications Home Medications Medication Instructions Recorded Confirmed Last Taken metformin 500 mg tablet 500 mg PO BID 10/22/18 03/30/21 03/30/21 ondansetron 4 mg disintegrating 4 mg PO Q6H PRN #12 tab 05/21/20 03/30/21 08/10/20 11:00 tablet albuterol sulfate 90 mcg/actuation 2 puff INHALATION Q6H PRN 07/24/20 03/30/21 Unknown aerosol inhaler (Ventolin HFA) diphenhydramine HCl 25 mg tablet 25 mg PO Q6H PRN 07/24/20 03/30/21 Unknown (Benadryl Allergy) epinephrine 0.3 mg/0.3 mL 0.3 mg IM Q4H PRN 07/24/20 03/30/21 Unknown injection, auto-injector hydroxyzine HCl 25 mg tablet 25 mg PO DAILY PRN 07/24/20 03/30/21 08/09/20 23:00 sertraline 50 mg tablet (Zoloft) 50 mg PO QAM 07/24/20 03/30/21 03/30/21 prednisone 10 mg tablet 20 mg PO DAILY PRN 08/10/20 03/30/21 Unknown cetirizine 10 mg tablet 10 mg PO DAILY 03/30/21 03/30/21 03/30/21 Active Medications Generic Name Dose Route Start Last Admin Trade Name Freq PRN Reason Stop Dose Admin Hydromorphone HCl 0.5 mg 03/31/21 01:02 03/31/21 01:29 Hydromorphone Inj 0.5 Mg/0.5 Ml Syr IV 04/14/21 01:01 0.5 mg Q6H PRN Administration Pain Lactated Ringer's 1,000 mls @ 75 mls/hr 03/31/21 01:02 03/31/21 02:30 Lr IV 04/30/21 01:01 75 mls/hr .[id number] KAMRAN Administration Ondansetron HCl 4 mg 03/31/21 01:02 03/31/21 02:32 Ondansetron Inj 2 Mg/Ml 2 Ml Vial IV 04/30/21 01:01 4 mg Q6H PRN Administration Nausea And Vomiting Past Medical History Medical History Anemia no hx of blood transfusion Anxiety and depression Chronic bronchitis inhaler PRN COVID-19 virus detected COVID positive 06/06/20 ([employer] NAAT/[facility] [place]) (symptoms at time of sinus pressure > since resolved) GERD (gastroesophageal reflux disease) controlled Hx of migraines Hypertension Hypertension 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 > extensive workup including serum tryptase with no definitive etiology, 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 > prednisone PRN Migraine Morbid obesity No pertinent past medical history Polycystic ovarian syndrome on Metformin Post traumatic stress disorder Scoliosis mild Past Family History Family History Other Family history non-contributory No family history of adverse response to anesthesia Past Surgical History Surgical History History of biopsy Uterine History of cholecystectomy History of cholecystectomy History of colonoscopy History of esophagogastroduodenoscopy (EGD) [place] teeth removed Social History Smoking Status: Never smoker tobacco type: cigarettes Do You Dip or Chew Tobacco: No Hx Alcohol Use: Yes Alcohol type: hard liquor alcohol intake frequency: holidays/special occasions only Hx Substance Use: No substance use type: does not use Physical Exam Vital Signs Last Vital Signs Temp 36.8 C 03/31/21 01:47 Pulse 77 03/31/21 01:47 Resp 22 03/31/21 01:47 BP 154/93 H 03/31/21 01:47 Pulse Ox 95 03/31/21 01:47 Testing Laboratory Results 03/30/21 18:34 03/30/21 18:34 Urine Color Yellow 03/30/21 18:34 Urine Appearance Clear (Clear) 03/30/21 18:34 Urine pH 6.5 (4.5-7.5) 03/30/21 18:34 Ur Specific [place] 1.010 (1.000-1.030) 03/30/21 18:34 Urine Protein Negative (Negative) 03/30/21 18:34 Urine Glucose (UA) Negative (Negative) 03/30/21:34 Urine Ketones Negative (Negative) 03/30/21: Urine Nitrite Negative (Negative) 03/30/21 18:34 Ur Leukocyte Esterase Trace (Negative) H 03/30/21 18:34 Urine WBC (Auto) 1-5 /hpf (0-5) 03/30/21 18:34 Urine RBC (Auto) 10-30 /hpf (0-4) H 03/30/21 18:34 U Hyaline Cast (Auto) 0 /lpf (0-5) 03/30/21 18:34 U Epithel Cells (Auto) 0-5 /lpf (0-5) 03/30/21 18:34 Urine Bacteria (Auto) Negative (Negative) 03/30/21 18:34
[2021-03-31] MEDS ORDERED: ONDANSETRON INJ 2 MG/ML 2 ML VIAL ONE ×2 (07:52→08:52)
[2021-03-31] MEDS ORDERED: PROMETHAZINE HCL 12.5 MG in SODIUM CHLORIDE 0.9% 50 ML IV PRN (07:54)
[2021-03-31] MEDS ORDERED: ATROPINE SULFATE 0.1 MG/ML 10ML SYR IV PRN (07:54)
[2021-03-31] MEDS ORDERED: ePHEDrine sulfate 50 MG/ML AMP IV PRN (07:54)
[2021-03-31] MEDS ORDERED: SCOPOLAMINE 1 MG TDSY TD ONE ×2 (07:54)
--- NOTE | 2021-03-31 07:58 | CT Scan Report ---
ABDOMEN AND PELVIS CT WITH IV CONTRAST CT DOSE: 2085.25 mGy.cm HISTORY: Generalized abdominal pain. TECHNIQUE: Multiaxial CT images of the abdomen and pelvis were performed following the use of intrave nous contrast. A dose lowering technique was utilized adhering to the principles of ALARA. COMPARISON STUDY: Abdomen and pelvis CT 07/02/2020. FINDINGS: The lung bases are clear. The liver, spleen, adrenal glands, pancreas, and kidneys are unre markable. Prior cholecystectomy. No retroperitoneal lymphadenopathy. The bladder, uterus, bilateral a dnexa are within normal limits. No bowel wall thickening or obstruction. The appendix measures up to 8 mm and is partially filled with gas. No significant periappendiceal fat stranding. This remains unc hanged compared to the prior study. Therefore, no evidence for acute appendicitis.. No fractures with in the visualized osseous structures. IMPRESSION: 1. No evidence for acute appendicitis. The appendix appears unchanged compared to the prior study. 2. No bowel wall thickening or obstruction. 3. Cholecystectomy. ACT 112: Negative or not required by law. Electronically signed by: Remington Chopra M.D. 03/31/2021 7:56 AM
[2021-03-31] MEDS ORDERED: metroNIDAZOLE 500 MG/100 ML BAG IV SCH (08:00)
[2021-03-31] MEDS ORDERED: SUCCINYLCHOLINE CHLORIDE 20 MG/ML 10 ML VIAL IV ONE (08:18)
[2021-03-31] MEDS ORDERED: FAMOTIDINE/PF 20 MG/2 ML VIAL IV ONE (08:31)
[2021-03-31] MEDS ORDERED: NEOSTIGMINE METHYLSULFATE 1 MG/ML 10ML VIAL ONE (08:52)
[2021-03-31] MEDS ORDERED: DEXAMETHASONE SOD INJ 4 MG/ML VIAL ONE (08:52)
[2021-03-31] MEDS ORDERED: GLYCOPYRROLATE 0.2 MG/ML VIAL ONE (08:52)
[2021-03-31] MEDS ORDERED: SERTRALINE HCL 50 MG TABLET PO SCH (09:00)
[2021-03-31] MEDS ORDERED: CETIRIZINE HCL 10 MG TABLET PO SCH (09:00)
--- NOTE | 2021-03-31 09:00 | Operative Report ---
PG Post Operative Report Pre & Post Diagnosis Operation Date: 03/31/21 07:30 Preop diagnosis: Acute appendicitis Postop diagnosis: Acute appendicitis I identified the patient and participated in the time-out.: Yes Procedure Operation Date: 03/31/21 07:30 Procedure performed: Laparoscopic appendectomy Surgeon Brian Chance DO, FACS Stitch [employer]ing Machine Tender Helper Luis Graff Estimated Blood Loss 5 Findings Consistent with Post-Op Diagnosis Acute nonperforated appendicitis Specimens Appendix Anesthesia Type General Complications none Disposition Accompanied Patient To Recovery: No Disposition: Recovery Room Indications 36-year-old female presented to the emergency department with signs symptoms of acute appendicitis, CT scan confirmed. Plan for laparoscopic appendectomy. The risks of the procedure were discussed, all questions were answered, and the patient agreed to proceed with surgery as planned. Description of Procedure The patient was properly identified, consented, and taken to the operating room where she was placed in the supine position. General endotracheal anesthesia was induced. SCDs and a safety belt were placed. Preoperative antibiotics were administered. A Tang catheter [was/was not] placed. The patient's abdomen was prepped and draped in the standard sterile fashion. Surgical timeout was performed and all parties were in agreement that this was the correct patient and procedure to be performed and we continued as planned. A curvilinear infraumbilical incision was made with electrocautery and deepened down to the fascia with blunt dissection. The base of the umbilicus was grasped with a Cj and elevated towards the ceiling. An incision was made in the midline fascia with a knife and entry into the peritoneum was confirmed. Stay suture of 0 Vicryl was placed and a Barry trocar was inserted. The abdomen was insufflated with carbon dioxide which the patient tolerated without incident. The laparoscope was inserted and no damage from initial trocar placement was noted, no gross abnormalities were noted within the 4 quadrants the abdomen. 5 mm ports were then placed in the left lower quadrant with care not to damage the epigastric vessels, and in the suprapubic midline with care not to damage the bladder. The patient was placed in Trendelenburg position and rotated towards the left. The small bowel was swept away from the right lower quadrant. The cecum was grasped with an atraumatic grasper exposing the appendix. The appendix was mildly inflamed and there was no evidence of perforation. There was no fluid in the pelvis. The appendix was partially retrocecal. A window was created between the base of the appendix and the mesoappendix. A thomas loaded endoscopic stapler was then used to divide the appendix at its base. The Sonicision was then used to mobilize the white line of [place] and to divide the mesoappendix. Hemostasis was good. The appendix was placed in an Endo Catch bag and removed through the umbilical port site. The right lower quadrant and pelvis was irrigated and hemostasis was found to be good. 5 mm trochars were removed under direct visualization and the abdomen was allowed to collapse. The umbilical port site fascia was closed with 0 Vicryl suture. The wound was irrigated, and the skin of all ports was closed with 4-0 Monocryl subcuticular sutures. Dermabond was placed over the wounds. The patient was extubated in the operating room and taken to the PACU where she recovered without apparent incident. All sponge, instrument and needle counts were correct at the conclusion of the procedure. The patient tolerated the procedure well. The physician's construction administrative assistant was present and scrubbed for the entirety of the case. He was critical in positioning the patient, prepping and draping, retraction and exposure, driving the laparoscope, closure the incisions, placement of the dressings. I attest to the content of the Intraoperative Record and any orders documented therein. Any exceptions are noted below.
[2021-03-31] MEDS ORDERED: diphenhydrAMINE 50 MG/ML VIAL ONE (09:23)
[2021-03-31] MEDS: fentaNYL citrate 100 MCG/2 ML VIAL IV PRN ×2 (09:33→09:43)
[2021-03-31] MEDS ORDERED: PROMETHAZINE HCL INJ 25 MG/ML 1 ML VIAL ONE (09:54)
--- NOTE | 2021-03-31 10:12 | Anesthesiology Progress Note ---
Date of Service March 31, 2021 Anesthesia Post Procedure Vital Signs Vital Signs: Temp Pulse Pulse Pulse Resp BP BP 03/31/21 09:55 36.3 C L 63 13 03/31/21 09:45 60 14 03/31/21 09:35 58 L 14 03/31/21 09:25 100 H 17 03/31/21 09:17 36.2 C L 64 14 03/31/21 07:56 36.5 C 76 16 03/31/21 01:47 36.8 C 77 22 154/93 H 03/31/21 00:24 77 16 178/101 H 03/30/21 23:25 77 16 175/119 H 03/30/21 22:00 80 18 157/90 H 03/30/21 20:00 87 18 185/92 H 03/30/21 18:29 36.9 C 81 18 203/121 H BP Pulse Ox 03/31/21 09:55 152/102 H 96 03/31/21 09:45 150/106 H 96 03/31/21 09:35 153/96 H 99 03/31/21 09:25 164/101 H 98 03/31/21 09:17 168/108 H 99 03/31/21 07:56 146/89 H 98 03/31/21 01:47 95 03/31/21 00:24 99 03/30/21 23:25 99 03/30/21 22:00 99 03/30/21 20:00 100 03/30/21 18:29 100 Pain Intensity Pelvic: Pain Intensity: 6 Abdomen: Pain Intensity: 4 Transfer of Care Handoff Completed per policy Notes Mental Status: alert / awake / arousable and participated in evaluation Patient Amnestic to Procedure: Yes Nausea / Vomiting: adequately controlled Pain: adequately controlled Airway Patency, RR, SpO2: stable & adequate BP & HR: stable & adequate Hydration State: stable & adequate Anesthetic Complications: no major complications apparent and Pt Satisfied with anesthetic care
[2021-03-31] MEDS ORDERED: CIPROFLOXACIN / D5W 400 MG/200 ML BAG IV SCH (12:00)
[2021-03-31] MEDS ORDERED: CHECK SCOPOLAMINE PATCH PLACEMENT SCH (16:00)
--- NOTE | 2021-03-31 19:59 | Discharge Summary ---
Date of Service March 31, 2021 Discharge Data Consultations 03/30/21 22:19 ED Decision to Admit Stat Procedures Performed Operation Date: 03/31/21 07:30 Actual Procedures p Laparoscopic Appendectomy(Not Applicable) - Brian Chance DO, FACS Hospital Course (1) Appendicitis: Patient presented [facility] secondary abdominal pain. Her clinical presentation along with imaging and labs were consistent with acute appendicitis. Patient was therefore placed in the hospital in observation status administer appropriate antibiotics and analgesics. The day following admission she was taken the operating room where she underwent a laparoscopic appendectomy. Her diet was advanced today for surgery which she tolerated well. She was deemed safe for discharge home the day of surgery. She was instructed on appropriate wound care, diet, and activity. She was told to call Dr. Chance office for 1 to the follow-up appointment. Coding Level of Care Code None Diagnoses Appendicitis K35.30 Acute appendicitis type: with localized peritonitis Appendicitis abscess presence: unspecified whether abscess present Appendicitis gangrene presence: unspecified whether gangrene present Appendicitis perforation presence: unspecified whether perforation present Appendicitis type: acute appendicitis
== END 2021-03-31 16:13 | disposition home or self-care (01) ==
LOC: 3E 17:17 → ED 17:17 → 3E 03-31 00:24